=== PATIENT | female | born 1985 | race Caucasian/White ===

== ENCOUNTER → 2016-06-18 | Day surgery (SDC) | payer BC ==
--- NOTE | 2016-06-19 15:06 | PATH ---
Cytology Non-Gynecological Report Patient Name: ANDRZEJ RECINOS [facility]. Rec. #: [id number] /Age/Gender: 1985 (Age: 30) / F Account: [id number] Location: RADIOLOGY Taken: 06/18/2016 Received: 06/18/2016 Reported: 06/19/2016 Physicians: Bandar Ibarra M.D. Specimen(s) Received RIGHT THYROID FNA Clinical History Right thyroid nodule,?suspicious,1.59 x 1.00 x 1.02 cm Final Diagnosis THYROID GLAND, RIGHT LOBE, US GUIDED FINE NEEDLE ASPIRATION BIOPSY: SATISFACTORY FOR EVALUATION. SUSPICIOUS FOR FOLLICULAR NEOPLASM ([place] CATEGORY IV), SEE COMMENT. Comment: The smears are cellular and show clusters of follicular epithelial cells arranged predominantly in microfollicular pattern and flat sheets. Although focal nuclear grooves are identified, no significant nuclear enlargement or pseudoinclusions are seen. Only a small amount of colloid is present. The findings are suspicious for follicular neoplasm ([place] category IV). The cytologic category of follicular neoplasm may represent cellular adenomatoid nodule, follicular adenoma, follicular carcinoma and follicular variant of papillary carcinoma. Clinical and imaging correlations and follow up are suggested. The case was preliminary discussed with Dr. Valenzuela on 06/18/16. Electronically Signed Martínez Kwong M.D. Gross Description Received are four air dried smears, four smears in 95% alcohol, and 20 cc of bloody fluid in formalin. Four diff-quik stained slides, four Pap stained slides and one cell block are made.
== END | disposition home or self-care (01) ==
LOC: JRADIR 09:38
PROVIDERS: ATTEND Internal Medicine
PROC: 0G9H3ZX Drainage of Right Thyroid Gland Lobe, Percutaneous Approach, Diagnostic (ICD-10-PCS; principal; 2016-06-18)
PROC: BG44ZZZ Ultrasonography of Thyroid Gland (ICD-10-PCS; 2016-06-18)
DX: E04.1 Nontoxic single thyroid nodule (principal)
CPT/HCPCS: 76942; 88173; 88305-TC

== ENCOUNTER 2018-02-12 20:10 | Inpatient (IN) | payer BC ==
--- NOTE | 2018-02-12 21:06 | HP ---
Past Medical History - Admission History of Present Illness: 32 yo @ 38 6/7 wks by first trimester ultrasound, EDC 02/20/2018 complicated by: 1. Papillary Thyroid CA - s/p thyroidectomy 2017 and on 137 mcg synthroid 2. BMI 33 - early GCT 92 Elevated GCT at 26-28 wks, normal GTT 3. GBS + urine No PCN allergy 4. 2 vessel cord on ultrasound Most recent ultrasound: 01/25/18 2706g, 36%ile Patient presents with chief complaint of contractions. She reports movement, no leakage of fluid or vaginal bleeding. Her contractions became more consistent and frequent at approximately 1900. History Source: Patient Limitations to Obtaining History: No Limitations - Past Medical History Cardiovascular: No: HTN Pulmonary: No: Asthma Gastrointestinal: No: GERD ...: 1 ...Para: 0 Heme/Onc: No: Anemia Endocrine: Yes: Hypothyroidism - Past Surgical History Hx Myomectomy: No Hx Transabdominal Cerclage: No Additional Surgical History: thyroidectomy - Smoking History Smoking history: Never smoked - Alcohol/Substance Use Hx Alcohol Use: No - Social History History of Recent Travel: No Home Medications - Allergies Allergies/Adverse Reactions: Allergies Allergy/AdvReac Type Severity Reaction Status Date / Time No Known Allergies Allergy Verified 08/12/15 12:33 - Home Medications Home Medications: Ambulatory Orders Levothyroxine [Synthroid -] 100 mcg PO DAILY 08/12/15 Family Disease History - Family Disease History Family History: Denies Review of Systems - Review of Systems Constitutional: reports: No Symptoms Cardiovascular: reports: No Symptoms Respiratory: reports: No Symptoms Gastrointestinal: reports: No Symptoms Genitourinary: reports: No Symptoms Musculoskeletal: reports: No Symptoms Integumentary: reports: No Symptoms Neurological: reports: No Symptoms Psychiatric: reports: No Symptoms Physical Exam - Maternity Constitutional: Yes: Well Nourished, No Distress, Calm Cardiovascular: Yes: Regular Rate and Rhythm Lungs: Clear to auscultation - Abdominal Exam/OB Number of Fetuses: Single Presentation: Vertex Contractions: Yes Intensity: Moderate Monitor Mode: External Category: I Accelerations: Non-Uniform Decelerations: None - Vaginal Exam/OB Speculum Exam: No Dilatation (cm): 6 Effacement (%): 80 Amniotic Membrane Status: Intact Station: -2 - Physical Exam Musculoskeletal: Yes: WNL Edema: No Psychiatric: Yes: Alert, Oriented Hemorrhage Risk Assessment - Risk Factors Medium Risk Factors: Yes: None High Risk Factors: Yes: None Risk Score: 1 Risk Level: Medium Risk Assessment/Plan 32 yo @ 38 6/7 wks in active labor 1. Admit to L&D 2. Consents reviewed and signed 3. GBS positive - to start ampicillin 4. Category I FHT 5. Will offer pain medication upon request 6. Will proceed to expectant management
[2018-02-12] MEDS ORDERED: AMPICILLIN - 2 GM in SODIUM CHLORIDE 100 ML IVPB ONE (21:07)
[2018-02-12] MEDS ORDERED: ELECTROLYTE-148 SOLN 1,000 ML IV SCH (21:15)
[2018-02-12 21:36] VITALS: BMI 37.8
[2018-02-12 22:31] LABS: BASO % 0.3 % (0-2.0); EOS % 0.1 % (0-4.5); HEMATOCRIT 39.3 % (32.4-45.2); LYMPH % 6.1 % (8-40); MCH 29.5 pg (25.7-33.7); MCHC 35.7 g/dl (32.0-36.0); MEAN CELL VOLUME 82.8 fl (80-96); MEAN PLT VOLUME 10.3 fl (7.5-11.1); MONO % 5.5 % (3.8-10.2); PLATELET COUNT 161 K/MM3 (134-434); RBC 4.74 M/mm3 (3.60-5.2); RDW 13.8 % (11.6-15.6); WHITE BLOOD COUNT 19.8 K/mm3 (4.0-10.0)
[2018-02-12 22:44] LABS: INR 0.94 (0.83-1.09); PROTHROMBIN TIME (PATIENT) 11.1 SEC (9.7-13.0)
[2018-02-12 23:11] LABS: ANION GAP 11 MMOL/L (8-16); BLOOD UREA NITROGEN 14 mg/dL (7-18); CALCIUM 8.5 mg/dL (8.5-10.1); CHLORIDE 99 mmol/L (98-107); CO2 24 mmol/L (21-32); CREATININE 0.8 mg/dL (0.55-1.3); GLUCOSE,RANDOM 89 mg/dL (74-106); POTASSIUM 3.8 mmol/L (3.5-5.1); SODIUM 134 mmol/L (136-145)
[2018-02-12] MEDS ORDERED: FENTANYL/BUPIVACAINE/NS/PF - PCEA - 50 ML DISP.SYRIN EP ONE (23:12)
[2018-02-12] MEDS ORDERED: BUPIVACAINE HCL/PF 0.25% (2.5MG/ML) 10 ML VIAL ONE (23:14)
[2018-02-12] MEDS ORDERED: TUBERCULIN PPD 5 TU/0.1ML SYRINGE (IN PATIENT USE ONLY) ID ONE (23:30)
[2018-02-12] MEDS: FENTANYL/BUPIVACAINE/NS/PF - PCEA - 50 ML DISP.SYRIN EP SCH (23:35)
[2018-02-12] MEDS ORDERED: NALOXONE HCL 0.4 MG/ML VIAL IVPUSH PRN (23:39)
--- NOTE | 2018-02-13 00:22 | PN ---
Ante-Partal Exam - Subjective Subjective: Patient comfortable s/p epidural Vital Signs: Vital Signs Temperature 98.6 F 02/12/18 22:00 Pulse Rate 113 H 02/12/18 22:00 Respiratory Rate 20 02/12/18 22:00 Blood Pressure 138/90 02/12/18 22:00 O2 Sat by Pulse Oximetry (%) Bleeding: No Headache: No Visual changes: No Right upper quadrant pain: No - Contractions Contractions: Yes Regularity: Regular Intensity: Unaware Monitor Mode: External - Exam during Labor Heart Rate: 130 Variability: Moderate Category: I Monitor Accelerations: Present Monitor Decelerations: Late (x1) Exam: Vaginal Dilatation (cm): 8 Effacement (%): 90 Amniotic Membrane Status: Ruptured Amniotic Fluid: Clear Presentation: Vertex Station: -2 - Intrapartum Hemorrhage Risk Medium Risk Factors: None High Risk Factors: None Risk Score: 0 Risk Level: Low Risk - Assessment/Plan Assessment/Plan: 32 yo @ 38 + wks active labor 1. Good cervical change 2. GBS positive 3. Category II FHT - late decel x 1; currently category I, will continue to monitor 4. Adequate pain control 5. Will proceed with expectant management
[2018-02-13] MEDS ORDERED: AMPICILLIN SODIUM 1 GM VIAL ONE ×2 (01:04→05:57)
[2018-02-13] MEDS: AMPICILLIN - 1 GM in SODIUM CHLORIDE 100 ML IVPB SCH ×3 (01:05→09:30)
[2018-02-13] MEDS ORDERED: FENTANYL/BUPIVACAINE/NS/PF - PCEA - 50 ML DISP.SYRIN EP ONE (04:23)
[2018-02-13] MEDS ORDERED: OXYTOCIN 30 UNITS in 0.9% NS 30 UNIT/500 ML INFUS.BAG IVPB ONE (06:25)
--- NOTE | 2018-02-13 06:34 | PN ---
Ante-Partal Exam - Subjective Subjective: Patient comfortable s/p epidural Vital Signs: Vital Signs Temperature 99.5 F 02/13/18 05:39 Pulse Rate 116 H 02/13/18 05:45 Respiratory Rate 18 02/13/18 05:45 Blood Pressure 122/92 02/13/18 05:45 O2 Sat by Pulse Oximetry (%) 95 02/13/18 05:45 Bleeding: Yes (bloody show) Headache: No Visual changes: No Right upper quadrant pain: No - Contractions Contractions: Yes Regularity: Regular Intensity: Unaware Monitor Mode: External - Exam during Labor Heart Rate: 130 Variability: Moderate Category: I Monitor Accelerations: Present Monitor Decelerations: None Exam: Vaginal Dilatation (cm): 9 Effacement (%): 100 Amniotic Membrane Status: Ruptured Presentation: Vertex Station: -1 - Intrapartum Hemorrhage Risk Medium Risk Factors: None High Risk Factors: None Risk Score: 0 Risk Level: Low Risk - Assessment/Plan Assessment/Plan: 32 yo @ 38+ wks, in active labor 1. Inadequte cervical change Position changed to L lateral Will start pitocin 2. GBS positive, on ampicillin 3. Well controlled pain on epidural 4. Will proceed with expectant management
[2018-02-13] MEDS ORDERED: OXYTOCIN 30 UNITS in 0.9% NS 30 UNIT/500 ML INFUS.BAG IVPB SCH (07:00)
[2018-02-13] MEDS ORDERED: OXYTOCIN 20 UNITS in 0.9% NS 20 UNIT/1,000 ML INFUS.BAG IV ONE (07:22)
[2018-02-13] MEDS ORDERED: LIDOCAINE HCL 1% PRESERVATIVE FREE - 30ML VIAL ONE (07:23)
[2018-02-13] MEDS ORDERED: BISACODYL 10 MG SUPP.RECT RC PRN (09:37)
[2018-02-13] MEDS ORDERED: WITCH HAZEL 50% (TUCKS) 40 PAD/JAR PAD TP PRN (09:37)
[2018-02-13] MEDS ORDERED: BENZOCAINE 20% 57 GM BOTTLE TP PRN (09:37)
[2018-02-13] MEDS ORDERED: BENZOCAINE 28 GM HEMORRHOIDAL OINTMENT TP PRN (09:37)
[2018-02-13] MEDS ORDERED: METHYLERGONOVINE MALEATE 0.2 MG/1 ML AMP IM PRN (09:37)
--- NOTE | 2018-02-13 09:37 | PN ---
Delivery - Delivery Vaginal Delivery: No Problems Type of Anesthesia: Epidural Episiotomy/Laceration: Vaginal Extension/lac (sulcal laceration), 2nd degree EBL (cc): 400 Delivery, Single - Stages of Labor Date 1st Stage Initiatied: 02/12/18 Time 1st Stage Initiated: 19:00 Date 2nd Stage Initiated: 02/13/18 Time 2nd Stage Initiated: 19:30 Date of Delivery: 02/13/18 Time of Delivery: 09:03 Date Placenta Delivered: 02/13/18 Time Placenta Delivered: 09:15 Placenta: Yes: Spontaneous - Condition of Gender: Male Position: Left, OT Total Hours ROM (Hrs/Mins): 9 hours - 1 Minute Total Score: 9 5 Minutes Total Score: 9 - [place] Feeding Plan Initial Plan: Exclusive throughout hospitalization Remarks - Remarks Remarks: Patient progressed to fully dilated and at 0903 via delivered a viable male infant in Left transverse position, APGARs 9,9. Weight and length unknown at this time. Head delivered spontaneously followed by shoulders and body without difficulty. with spontaneous cry and placed on mother's abdomen. Nose and mouth was bulb suctioned. Cord was clamped and cut. Perineum and vagina examined, a second degree laceration with vaginal /sulcal extension was noted and repaired in the usual fashion. Rectal exam revealed no sutures in rectum. Placenta was delivered spontaneously and intact. 20 units of pitocin in 1 L IVF was given. All counts correct x 2. Mother and stable in LDR. EBL 400cc.
[2018-02-13] MEDS ORDERED: OXYTOCIN 20 UNITS in 0.9% NS 20 UNIT/1,000 ML INFUS.BAG IV SCH (09:45)
[2018-02-13] MEDS: IBUPROFEN 600 MG TABLET (FP) PO PRN (21:39)
[2018-02-13] MEDS: ACETAMINOPHEN 325 MG TABLET (FP) PO PRN (21:40)
[2018-02-14] MEDS ORDERED: LEVOTHYROXINE 100 MCG, LEVOTHYROXINE 50 MCG PO ONE (07:00)
[2018-02-14 08:12] LABS: BASO % 0.3 % (0-2.0); EOS % 0.6 % (0-4.5); HEMATOCRIT 31.3 % (32.4-45.2); HEMOGLOBIN 10.1 GM/dL (10.7-15.3); LYMPH % 19.1 % (8-40); MCH 27.5 pg (25.7-33.7); MCHC 32.3 g/dl (32.0-36.0); MEAN CELL VOLUME 85.1 fl (80-96); MEAN PLT VOLUME 10.8 fl (7.5-11.1); MONO % 6.2 % (3.8-10.2); NEUT % 73.8 % (42.8-82.8); PLATELET COUNT 139 K/MM3 (134-434); RBC 3.68 M/mm3 (3.60-5.2); RDW 14.2 % (11.6-15.6); WHITE BLOOD COUNT 19.6 K/mm3 (4.0-10.0)
[2018-02-14] MEDS: FENTANYL/BUPIVACAINE/NS/PF - PCEA - 50 ML DISP.SYRIN EP SCH (10:16)
[2018-02-14] MEDS: AMPICILLIN - 1 GM in SODIUM CHLORIDE 100 ML IVPB SCH (10:16)
[2018-02-14] MEDS: PRENATAL VITAMINS W/ FOLIC ACID TABLET (FP) PO SCH ×2 (10:29)
--- NOTE | 2018-02-14 11:52 | PN ---
Post Progress Note - Subjective Subjective: Patient without acute complaints. Reports tolerating oral intake without nausea or vomiting. Ambulating without dizziness. Denies fevers or chills. Pain well controlled with oral pain medication. Trying to breast feed, baby not latching well yet. Passing flatus, no BM. Post Day: 1 Type of Delivery: Vital Signs: Vital Signs Temperature 98.4 F 02/14/18 10:00 Pulse Rate 105 H 02/14/18 10:00 Respiratory Rate 20 02/14/18 10:00 Blood Pressure 119/78 02/14/18 10:00 O2 Sat by Pulse Oximetry (%) 98 02/13/18 06:45 Breast Exam: Yes: Soft Uterus: Yes: Fundus Firm, Fundus below umbilicus Abdomen/GI: Yes: Abdomen soft, Passing flatus, Tolerating PO, Other Lochia: Yes: Rubra Lochia, amount: Small Extremities: Yes: Calves non-tender Perineum: Yes: Laceration (repair intact) Activity: Ambulating - Labs Labs: CBC WBC 19.6 K/mm3 (4.0-10.0) H 02/14/18 07:30 RBC 3.68 M/mm3 (3.60-5.2) 02/14/18 07:30 Hgb 10.1 GM/dL (10.7-15.3) L 02/14/18 07:30 Hct 31.3 % (32.4-45.2) L D 02/14/18 07:30 MCV 85.1 fl (80-96) 02/14/18 07:30 MCH 27.5 pg (25.7-33.7) 02/14/18 07:30 MCHC 32.3 g/dl (32.0-36.0) 02/14/18 07:30 RDW 14.2 % (11.6-15.6) 02/14/18 07:30 Plt Count 139 K/MM3 (134-434) 02/14/18 07:30 MPV 10.8 fl (7.5-11.1) 02/14/18 07:30 Absolute Neuts (auto) 14.5 K/mm3 (1.5-8.0) H 02/14/18 07:30 Neutrophils % 73.8 % (42.8-82.8) 02/14/18 07:30 Lymphocytes % 19.1 % (8-40) D 02/14/18 07:30 Monocytes % 6.2 % (3.8-10.2) 02/14/18 07:30 Eosinophils % 0.6 % (0-4.5) D 02/14/18 07:30 Basophils % 0.3 % (0-2.0) 02/14/18 07:30 Nucleated RBC % 0 % (0-0) 02/14/18 07:30 Assessment/Plan 32yo P1 s/p , doing well stable, afebrile. Asymptomatic for anemia. care instructions reviewed. Continue routine care. Ambulation encouraged Discharge instruction reviewed
--- NOTE | 2018-02-14 11:55 | DS ---
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 Vital Signs: Vital Signs Temperature 98.4 F 02/14/18 10:00 Pulse Rate 105 H 02/14/18 10:00 Respiratory Rate 20 02/14/18 10:00 Blood Pressure 119/78 02/14/18 10:00 O2 Sat by Pulse Oximetry (%) 98 02/13/18 06:45 Constitutional: Yes: Well Nourished, No Distress, Calm Eyes: Yes: WNL, Conjunctiva Clear, EOM Intact HENT: Yes: WNL, Atraumatic, Normocephalic Neck: Yes: WNL, Supple, Trachea Midline Cardiovascular: Yes: WNL, Regular Rate and Rhythm Respiratory: Yes: WNL, Regular, CTA Bilaterally Gastrointestinal: Yes: Normal Bowel Sounds, Soft, Abdomen, Obese ...Rectal Exam: Yes: Deferred Renal/: Yes: WNL ....Post : Yes: Uterus firm, Uterus non-tender, Slight lochia rubra Breast(s): Yes: WNL Musculoskeletal: Yes: WNL Extremities: Yes: WNL Edema: Yes Edema: LLE: Trace, RLE: Trace Integumentary: Yes: WNL Neurological: Yes: WNL, Alert, Oriented ...Motor Strength: WNL Psychiatric: Yes: WNL, Alert, Oriented Labs: CBC, BMP 02/14/18 07:30 02/12/18 22:00 Delivery - Delivery Vaginal Delivery: No Problems, Spontaneous Type of Anesthesia: Epidural Episiotomy/Laceration: Vaginal Extension/lac, 2nd degree EBL (cc): 400 Delivery, Single - Stages of Labor Date 1st Stage Initiatied: 02/12/18 Time 1st Stage Initiated: 19:00 Date 2nd Stage Initiated: 02/13/18 Time 2nd Stage Initiated: 19:30 Date of Delivery: 02/13/18 Time of Delivery: 09:03 Time Placenta Delivered: 09:15 Placenta: Yes: Spontaneous - Condition of Infant Insurance Case Manager/Wireless 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 Present: No Infant Gender: Male Position: Left, OT Total Hours ROM (Hrs/Mins): 9 hours - 1 Minute Total Score: 9 5 Minutes Total Score: 9 - [place] Feeding Plan Initial Plan: Exclusive throughout hospitalization Benefits of Exclusively reinforced: Yes Discharge Summary Reason For Visit: LABOR Spontaneous labor Obesity GBS (+) Procedures: Principal: Other Procedures: Repair of perineal laceration Hospital Course: Normal recovery Condition: Good - Instructions Diet, Activity, Other Instructions: Physical activity Resume your normal everyday activity as tolerated no heavy lifting or exercise until seen by your surgeon. You may walk unlimited cassy of and climb stairs. You may resume driving the car when you feel safe and comfortable behind the wheel. No sexual activity as instructed. Wound care If you have a bandage, leave it on, and keep dry for 48-72 hours. After that time discard the outer bandage. If they are tapes on the skin under the out of bandage leave them in place. They will peel off in the next 7 to 10 days. Do Not Peel them off. You may shower the day after surgery. If there are tapes present on the skin, you may shower over them. Diet There are no dietary restrictions. Eat healthy, high-fiber foods. Drink 6 to 8 glasses of liquid each day. This will assist in keeping your bowels are regular. Pain management You may take Tylenol or acetaminophen or Ibuprofen (for example, Motrin, Advil etc.) from my pain prescription medication is ordered should be taken as prescribed for moderate to severe pain. Call MD for any of the following: Severe pain not relieved by medication Fever of 101 or higher Excessive bleeding or drainage on dressing Inability to urinate Referrals: Harley Ariza MD [Staff Physician] - Disposition: HOME - Home Medications Comprehensive Discharge Medication List: Ambulatory Orders Levothyroxine [Synthroid -] 150 mcg PO DAILY 02/12/18 Levothyroxine [Synthroid -] 175 mcg PO DAILY 02/12/18 Vitamins (Sjr) - 1 tab PO DAILY 02/12/18 Vitamin D - DAILY 02/12/18
[2018-02-14] MEDS: IBUPROFEN 600 MG TABLET (FP) PO PRN ×2 (13:19→22:25)
[2018-02-14] MEDS: ACETAMINOPHEN 325 MG TABLET (FP) PO PRN ×2 (13:20→22:26)
[2018-02-14] MEDS ORDERED: SENNOSIDES/DOCUSATE COMBO (SENNA PLUS) TABLET (UD) PO PRN (22:00)
[2018-02-14 23:03] VITALS: PULSE 102
[2018-02-15] MEDS: ACETAMINOPHEN 325 MG TABLET (FP) PO PRN (03:20)
[2018-02-15] MEDS ORDERED: LEVOTHYROXINE 100 MCG, LEVOTHYROXINE 75 MCG PO ONE (07:00)
[2018-02-15] MEDS: PRENATAL VITAMINS W/ FOLIC ACID TABLET (FP) PO SCH (09:51)
--- NOTE | 2018-02-15 10:30 | PN ---
Post Progress Note - Subjective Subjective: No complaints Post Day: 2 Type of Delivery: Vital Signs: Vital Signs Temperature 98.1 F 02/14/18 21:00 Pulse Rate 102 H 02/14/18 21:00 Respiratory Rate 20 02/14/18 21:00 Blood Pressure 127/87 02/14/18 21:00 O2 Sat by Pulse Oximetry (%) 98 02/13/18 06:45 Breast Exam: Yes: Soft Uterus: Yes: Fundus Firm, Fundus below umbilicus, Non-tender Abdomen/GI: Yes: Abdomen soft, Passing flatus, Tolerating PO Lochia: Yes: Rubra Lochia, amount: Small Extremities: Yes: Calves non-tender Activity: Ambulating - Labs Labs: CBC WBC 19.6 K/mm3 (4.0-10.0) H 02/14/18 07:30 RBC 3.68 M/mm3 (3.60-5.2) 02/14/18 07:30 Hgb 10.1 GM/dL (10.7-15.3) L 02/14/18 07:30 Hct 31.3 % (32.4-45.2) L D 02/14/18 07:30 MCV 85.1 fl (80-96) 02/14/18 07:30 MCH 27.5 pg (25.7-33.7) 02/14/18 07:30 MCHC 32.3 g/dl (32.0-36.0) 02/14/18 07:30 RDW 14.2 % (11.6-15.6) 02/14/18 07:30 Plt Count 139 K/MM3 (134-434) 02/14/18 07:30 MPV 10.8 fl (7.5-11.1) 02/14/18 07:30 Absolute Neuts (auto) 14.5 K/mm3 (1.5-8.0) H 02/14/18 07:30 Neutrophils % 73.8 % (42.8-82.8) 02/14/18 07:30 Lymphocytes % 19.1 % (8-40) D 02/14/18 07:30 Monocytes % 6.2 % (3.8-10.2) 02/14/18 07:30 Eosinophils % 0.6 % (0-4.5) D 02/14/18 07:30 Basophils % 0.3 % (0-2.0) 02/14/18 07:30 Nucleated RBC % 0 % (0-0) 02/14/18 07:30 Assessment/Plan 32yo P1 s/p , doing well stable, afebrile. Asymptomatic for anemia. care instructions reviewed. Breast feeding instructions reviewed Ambulation encouraged Discharge instruction reviewed
[2018-02-15 11:20] VITALS: BP 107/85; TEMP 98.2
== END 2018-02-15 14:40 | disposition home or self-care (01) | DRG 807 ==
LOC: JDEL 20:10 → JLDR 20:55 → J3W 02-13 15:15
PROVIDERS: ADMIT Obstetrics & Gynecology; ATTEND Obstetrics & Gynecology
PROC: 10E0XZZ Delivery of Products of Conception, External Approach (ICD-10-PCS; principal; 2018-02-13)
PROC: 0KQM0ZZ Repair Perineum Muscle, Open Approach (ICD-10-PCS; 2018-02-13)
DX: O99.824 Streptococcus B carrier state complicating childbirth (principal); Z37.0 Single live birth; O99.02 Anemia complicating childbirth; D64.9 Anemia, unspecified; O70.1 Second degree perineal laceration during delivery; O99.214 Obesity complicating childbirth; E66.9 Obesity, unspecified; Z3A.38 38 weeks gestation of pregnancy; Z68.37 Body mass index [BMI] 37.0-37.9, adult
CPT/HCPCS: 36415; 59409; 80048; 85025; 85610; 85730; 86593; 86850; 86900; 86901